=== PATIENT | male | born 1975 | race Caucasian/White ===

== ENCOUNTER 2016-11-30 21:40 | Emergency (ER) | payer OTHER ==
[2016-11-30 22:20] LABS: BASOPHIL 0.5 % (0-2); EOSINOPHIL 3.9 % (0-5); HCT 41.9 % (42.0-52.0); HGB 14.9 g/dl (13.2-18.0); MCH 32.3 pg (25.0-31.0); MCHC 35.6 g/dL (32.0-36.0); MCV 90.7 fL (78.0-100.0); MONOCYTE 10.9 % (0-12); MPV 10.3 fL (6.0-9.5); NEUTROPHIL 53.7 % (41-80); PLT 266 K/uL (150-400); RBC 4.62 M/uL (4.70-6.00); RDW 13.8 % (11.5-14.0)
[2016-11-30 22:27] LABS: WBC 11.1 K/uL (4.0-10.5)
[2016-11-30 22:32] LABS: CREATININE 1.2 mg/dL (0.7-1.2); POTASSIUM 4.1 mmol/L (3.5-5.1)
[2016-11-30 22:38] LABS: TROPONIN T < 0.010 ng/mL
[2016-11-30 22:41] LABS: CKMB 6.32 ng/mL (0.97-4.94)
== END 2016-11-30 23:28 | disposition home or self-care (01) ==
LOC: FER 21:40
PROVIDERS: Emergency Medicine
DX: I48.0 Paroxysmal atrial fibrillation (principal); I10 Essential (primary) hypertension; F17.210 Nicotine dependence, cigarettes, uncomplicated; Z79.899 Other long term (current) drug therapy
CPT/HCPCS: 36415; 71010; 80048; 82550; 82553; 84443; 84484; 85025; 93005